=== PATIENT | male | born 1965 | race Caucasian/White ===

== ENCOUNTER 2017-01-28 04:14 | Emergency (ER) | payer OTHER ==
[~2017-01-28] VITALS: Ht 185.4 cm; Wt 81.8 kg
[~2017-01-28 04:14] MED LIST: BACTRIM,SEPT1 TABLET PO; HYDROCODON-ACE1 EAC7 PO; MOTRIN800 MG PO; PERCOCET 5/31 TABLET PO; TRAMADOL HCL50 MG PO
[2017-01-28 07:58] LABS: BASOPHIL COUNT 0.1 K/uL (0-0.1); EOSINOPHIL (%) 2.8 % (0-5); EOSINOPHIL COUNT 0.2 K/uL (0-0.3); HEMATOCRIT 41.8 % (38.0-50.0); IMMATURE GRANULOCYTE (%) 0.3 % (0.0-0.7); INSTRUMENT ABS NEUTROPHIL CT 3.8 K/uL; LYMPHOCYTE COUNT 1.9 K/uL (1.0-2.8); MCV 88.4 FL (86-99); MEAN PLAT.VOLUME 10.9 uM^3 (9.0-12.4); MONOCYTE (%) 11.5 % (3-12); MONOCYTE COUNT 0.8 K/uL (0-0.8); NEUTROPHIL (%) 56.6 % (45-76); NEUTROPHIL COUNT 3.8 K/uL (1.8-6.4); PLATELET COUNT 138 K/uL (156-360); RBC DIS.WIDTH-CV 13.4 % (11.8-14.6); RBC DIS.WIDTH-SD 43.9 % (39-53); RED BLOOD COUNT 4.73 M/uL (4.00-5.50); WHITE BLOOD COUNT 6.7 K/uL (4.1-10.2)
[2017-01-28 08:12] LABS: CHLORIDE 107 mEq/L (99-109); POTASSIUM 3.6 mEq/L (3.7-5.4); SODIUM 141 mEq/L (136-147)
[2017-01-28 08:13] LABS: PROTHROMBIN TIME 10.6 (9.2-11.2); PTT 28.2 (25-32)
[2017-01-28 08:14] LABS: GLUCOSE 90 mg/dL (70-99)
[2017-01-28 08:15] LABS: ANION GAP 12 MEQ/L (2-14)
[2017-01-28 08:18] LABS: GFR ESTIMATE (CALCULATED) > 59 mL/min/
[2017-01-28 08:19] LABS: UREA NITROGEN (BUN) 9 mg/dL (9-23)
[2017-01-28 09:32] VITALS: BP 120/86
== END 2017-01-28 09:32 | disposition short-term general hospital (02) ==
LOC: EME → EDBD 04:14 → TRA 04:14 → EME 09:32
PROVIDERS: Emergency Medicine
DX: S02.32XA Fracture of orbital floor, left side, initial encounter for closed fracture (principal); S09.90XA Unspecified injury of head, initial encounter; S01.01XA Laceration without foreign body of scalp, initial encounter; S02.40FA Zygomatic fracture, left side, initial encounter for closed fracture; Y04.8XXA Assault by other bodily force, initial encounter; Y07.9 Unspecified perpetrator of maltreatment and neglect; Z23 Encounter for immunization; F17.200 Nicotine dependence, unspecified, uncomplicated
CPT/HCPCS: 70450; 70486; 72125; 80048; 85025; 85610; 85730; 86900; 86901; 99281; 99285; J0690; J7030

== ENCOUNTER 2017-02-03 18:37 | Emergency (ER) | payer OTHER ==
[~2017-02-03] VITALS: Ht 182.9 cm; Wt 82.3 kg
[2017-02-03 18:45] VITALS: BP 158/100
[2017-02-03] MEDS ORDERED: DULOXETINE HCL60 MG PO (18:48)
[2017-02-03] MEDS ORDERED: LAMOTRIGINE100 MG PO (18:48)
[2017-02-03] MEDS ORDERED: AMITRIPTYLINE H25 MG PO (19:13)
[2017-02-03] MEDS ORDERED: BUSPIRONE HCL7.5 MG PO (19:14)
[2017-02-03] MEDS ORDERED: ESCITALOPRAM OX20 MG PO (19:15)
[2017-02-03] MEDS ORDERED: TRAZODONE HCL50 MG PO (19:15)
[2017-02-03] MEDS ORDERED: BRINTELLIX20 MG PO (19:15)
[2017-02-03] MEDS ORDERED: HYTRIN5 MG PO (19:16)
[2017-02-03] MEDS ORDERED: AMOXICILLIN500 MG PO (23:59)
[2017-02-03] MEDS ORDERED: PERCOCET 5/31 TABLET PO (23:59)
== END 2017-02-04 00:38 | disposition home or self-care (01) ==
LOC: EME 18:37
PROC: 3E0T3BZ Introduction of Anesthetic Agent into Peripheral Nerves and Plexi, Percutaneous Approach (ICD-10-PCS; principal; 2017-02-03)
DX: K04.7 Periapical abscess without sinus (principal); S01.01XD Laceration without foreign body of scalp, subsequent encounter; S02.92XD Unspecified fracture of facial bones, subsequent encounter for fracture with routine healing; Y08.09XD Assault by strike by other specified type of sport equipment, subsequent encounter; H11.32 Conjunctival hemorrhage, left eye; K02.9 Dental caries, unspecified; F17.200 Nicotine dependence, unspecified, uncomplicated
CPT/HCPCS: 70450; 70486; 99281; 99285

== ENCOUNTER 2017-02-19 16:09 | Emergency (ER) | payer OTHER ==
[~2017-02-19] VITALS: Ht 182.9 cm; Wt 80.0 kg
[~2017-02-19 16:09] MED LIST changes: +AMITRIPTYLINE H25 MG PO; +AMOXICILLIN500 MG PO; +BRINTELLIX20 MG PO; +BUSPIRONE HCL7.5 MG PO; +DULOXETINE HCL60 MG PO; +ESCITALOPRAM OX20 MG PO; +HYTRIN5 MG PO; +LAMOTRIGINE100 MG PO; +TRAZODONE HCL50 MG PO
[2017-02-19 18:22] LABS: HEMATOCRIT 43.7 % (38.0-50.0); MCH 29.7 PG (29.0-34.0); MCHC 34.1 G/DL (30.0-36.0); MCV 87.2 FL (86-99); MEAN PLAT.VOLUME 10.7 uM^3 (9.0-12.4); PLATELET COUNT 169 K/uL (156-360); RBC DIS.WIDTH-CV 12.9 % (11.8-14.6); RED BLOOD COUNT 5.01 M/uL (4.00-5.50)
[2017-02-19 18:31] LABS: CHLORIDE 96 mEq/L (99-109); POTASSIUM 3.7 mEq/L (3.7-5.4); SODIUM 133 mEq/L (136-147)
[2017-02-19 18:32] LABS: GLUCOSE 103 mg/dL (70-99)
[2017-02-19 18:34] LABS: ANION GAP 10 MEQ/L (2-14)
[2017-02-19 18:35] LABS: SERUM ETHYL ALCOHOL < 10 mg/dL
[2017-02-19 18:36] LABS: GFR ESTIMATE (CALCULATED) > 59 mL/min/
[2017-02-19 18:37] LABS: UREA NITROGEN (BUN) 9 mg/dL (9-23)
[2017-02-19] MEDS ORDERED: LIBRIUM25 MG PO (20:10)
[2017-02-19] MEDS ORDERED: ZOFRAN4 MG PO (20:10)
[2017-02-19 20:15] VITALS: BP 158/95
== END 2017-02-19 20:16 | disposition left against medical advice (07) ==
LOC: EME 16:09
DX: F10.20 Alcohol dependence, uncomplicated (principal); R56.9 Unspecified convulsions; R51 Headache; R68.83 Chills (without fever); F17.200 Nicotine dependence, unspecified, uncomplicated
CPT/HCPCS: 80048; 85027; 99281; 99284; G0480; J2765

== ENCOUNTER 2017-02-26 16:13 | Emergency (ER) | payer OTHER ==
[~2017-02-26] VITALS: Ht 182.9 cm; Wt 75.1 kg
[~2017-02-26 16:13] MED LIST changes: +LIBRIUM25 MG PO; +ZOFRAN4 MG PO
[2017-02-26 18:12] VITALS: BP 127/84
== END 2017-02-26 18:15 | disposition home or self-care (01) ==
LOC: EME 16:13
PROC: 0HQ0XZZ Repair Scalp Skin, External Approach (ICD-10-PCS; principal; 2017-02-26)
DX: S01.01XA Laceration without foreign body of scalp, initial encounter (principal); S50.311A Abrasion of right elbow, initial encounter; Y04.2XXA Assault by strike against or bumped into by another person, initial encounter; B19.20 Unspecified viral hepatitis C without hepatic coma; R56.9 Unspecified convulsions; F17.200 Nicotine dependence, unspecified, uncomplicated
CPT/HCPCS: 70450; 73080; 99281; 99283

== ENCOUNTER 2017-04-14 16:42 | Emergency (ER) | payer OTHER ==
[~2017-04-14] VITALS: Ht 182.9 cm; Wt 84.4 kg
[2017-04-14] MEDS ORDERED: BACTRIM,SEPT1 TABLET PO (18:36)
[2017-04-14] MEDS ORDERED: KEFLEX500 MG PO (18:36)
[2017-04-14 18:54] VITALS: BP 127/81
== END 2017-04-14 18:52 | disposition home or self-care (01) ==
LOC: EME 16:42
DX: L03.116 Cellulitis of left lower limb (principal)
CPT/HCPCS: 99281; 99284; J0696

== ENCOUNTER 2017-06-11 21:45 | Inpatient (IN) | payer OTHER ==
[~2017-06-11] VITALS: Ht 182.9 cm; Wt 82.6 kg
[~2017-06-11 21:45] MED LIST changes: +KEFLEX500 MG PO
[2017-06-11 23:09] LABS: HEMATOCRIT 44.9 % (38.0-50.0); MCHC 33.6 G/DL (30.0-36.0); MCV 86.2 FL (86-99); MEAN PLAT.VOLUME 10.2 uM^3 (9.0-12.4); PLATELET COUNT 209 K/uL (156-360); RBC DIS.WIDTH-SD 47.7 % (39-53); RED BLOOD COUNT 5.21 M/uL (4.00-5.50); WHITE BLOOD COUNT 8.4 K/uL (4.1-10.2)
[2017-06-11 23:18] LABS: CHLORIDE 102 mEq/L (99-109); POTASSIUM 3.8 mEq/L (3.7-5.4); SODIUM 143 mEq/L (136-147)
[2017-06-11 23:20] LABS: GLUCOSE 99 mg/dL (70-99)
[2017-06-11 23:22] LABS: ANION GAP 17 MEQ/L (2-14)
[2017-06-11 23:23] LABS: SERUM ETHYL ALCOHOL 282 mg/dL
[2017-06-11 23:24] LABS: GFR ESTIMATE (CALCULATED) > 59 mL/min/
[2017-06-11 23:25] LABS: UREA NITROGEN (BUN) 13 mg/dL (9-23)
[2017-06-11 23:48] LABS: AMPHETAMINE NEGATIVE (500 ng/mL); BARBITURATES NEGATIVE (200 ng/mL); BENZODIAZEPINES NEGATIVE (150 ng/mL); COCAINE PRESUMPTIVE POSITIVE (150 ng/mL); INTERNAL CONTROLS VALID? YES; METHADONE NEGATIVE (200 ng/mL); METHAMPHETAMINE NEGATIVE (500 ng/mL); OPIATES (MORPHINE) NEGATIVE (100 ng/mL); OXYCODONE NEGATIVE (100 ng/mL); PHENCYCLIDINE NEGATIVE (25 ng/mL); PROPOXYPHENE NEGATIVE (300 ng/mL); THC CANNABINOIDS PRESUMPTIVE POSITIVE (50 ng/mL); TRICYCLIC ANTIDEPRESSANTS NEGATIVE (300 ng/mL)
[2017-06-11 23:49] LABS: ADD MEDTOX COMMENT Y
[2017-06-12 09:29] VITALS: BP 124/81
[2017-06-12 15:14] VITALS: BP 144/84
[2017-06-13 08:40] VITALS: BP 145/75
[2017-06-13 15:55] VITALS: BP 137/79
[2017-06-14 07:54] VITALS: BP 120/72
[2017-06-14 15:33] VITALS: BP 140/85
[2017-06-15 08:17] VITALS: BP 147/83
[2017-06-15] MEDS ORDERED: FOLIC ACID1 MG PO (09:23)
[2017-06-15] MEDS ORDERED: Thiamine,Vitamin B1 PO (09:23)
[2017-06-15] MEDS ORDERED: BUSPAR10 MG PO (09:23)
[2017-06-15] MEDS ORDERED: DULOXETINE HCL60 MG PO (09:23)
== END 2017-06-15 11:06 | disposition other institution (70) | DRG 897 ==
LOC: EME 21:45 → 1WEST 06-12 07:25 → EDOF 06-12 07:25 → ENRESERV 06-12 09:16 → 1WEST 06-12 09:16
PROVIDERS: Emergency Medicine
PROC: HZ2ZZZZ Detoxification Services for Substance Abuse Treatment (ICD-10-PCS; principal; 2017-06-12)
DX: F10.239 Alcohol dependence with withdrawal, unspecified (principal); F90.9 Attention-deficit hyperactivity disorder, unspecified type; F14.20 Cocaine dependence, uncomplicated; R45.851 Suicidal ideations; F41.9 Anxiety disorder, unspecified; F17.210 Nicotine dependence, cigarettes, uncomplicated; F33.2 Major depressive disorder, recurrent severe without psychotic features; F10.229 Alcohol dependence with intoxication, unspecified; Y90.8 Blood alcohol level of 240 mg/100 ml or more; F12.20 Cannabis dependence, uncomplicated; G47.00 Insomnia, unspecified; Z59.0 Homelessness; Z56.0 Unemployment, unspecified; Z87.820 Personal history of traumatic brain injury; Z91.14 Patient's other noncompliance with medication regimen; Z91.19 Patient's noncompliance with other medical treatment and regimen; Z81.1 Family history of alcohol abuse and dependence
CPT/HCPCS: 71020; 73080; 80048; 84999; 85027; 90837; 97150 GO; 97165 GO; 99281; 99284; G0480

== ENCOUNTER 2017-08-04 13:11 | Emergency (ER) | payer OTHER ==
[~2017-08-04] VITALS: Ht 182.9 cm; Wt 85.4 kg
[~2017-08-04 13:11] MED LIST changes: +BUSPAR10 MG PO; +FOLIC ACID1 MG PO; +Thiamine,Vitamin B1 PO
[2017-08-04 15:45] VITALS: BP 118/78
== END 2017-08-04 15:46 | disposition home or self-care (01) ==
LOC: EME 13:11
DX: M54.5 Low back pain (principal); S50.11XA Contusion of right forearm, initial encounter; B19.20 Unspecified viral hepatitis C without hepatic coma; F90.9 Attention-deficit hyperactivity disorder, unspecified type; F31.9 Bipolar disorder, unspecified; R56.9 Unspecified convulsions; F32.9 Major depressive disorder, single episode, unspecified; F41.9 Anxiety disorder, unspecified; F17.200 Nicotine dependence, unspecified, uncomplicated
CPT/HCPCS: 99281; 99283

== ENCOUNTER 2017-08-06 20:54 | Emergency (ER) | payer OTHER ==
[~2017-08-06] VITALS: Ht 182.9 cm; Wt 85.4 kg
[2017-08-06 21:31] LABS: HEMATOCRIT 45.5 % (38.0-50.0); MCH 30.1 PG (29.0-34.0); MCHC 34.1 G/DL (30.0-36.0); MCV 88.3 FL (86-99); MEAN PLAT.VOLUME 10.6 uM^3 (9.0-12.4); PLATELET COUNT 201 K/uL (156-360); RBC DIS.WIDTH-CV 12.6 % (11.8-14.6); RBC DIS.WIDTH-SD 41.1 % (39-53); RED BLOOD COUNT 5.15 M/uL (4.00-5.50); WHITE BLOOD COUNT 5.8 K/uL (4.1-10.2)
[2017-08-06 21:46] LABS: CHLORIDE 103 mEq/L (99-109); POTASSIUM 3.6 mEq/L (3.7-5.4); SODIUM 140 mEq/L (136-147)
[2017-08-06 21:48] LABS: GLUCOSE 83 mg/dL (70-99)
[2017-08-06 21:49] LABS: ANION GAP 9 MEQ/L (2-14)
[2017-08-06 21:51] LABS: SERUM ETHYL ALCOHOL 190 mg/dL
[2017-08-06 21:52] LABS: GFR ESTIMATE (CALCULATED) > 59 mL/min/
[2017-08-06 21:53] LABS: UREA NITROGEN (BUN) 9 mg/dL (9-23)
[2017-08-06 21:56] LABS: ADD MEDTOX COMMENT Y; AMPHETAMINE NEGATIVE (500 ng/mL); BARBITURATES NEGATIVE (200 ng/mL); BENZODIAZEPINES NEGATIVE (150 ng/mL); COCAINE PRESUMPTIVE POSITIVE (150 ng/mL); INTERNAL CONTROLS VALID? YES; METHADONE NEGATIVE (200 ng/mL); METHAMPHETAMINE NEGATIVE (500 ng/mL); OPIATES (MORPHINE) PRESUMPTIVE POSITIVE (100 ng/mL); OXYCODONE NEGATIVE (100 ng/mL); PHENCYCLIDINE NEGATIVE (25 ng/mL); PROPOXYPHENE NEGATIVE (300 ng/mL); THC CANNABINOIDS NEGATIVE (50 ng/mL); TRICYCLIC ANTIDEPRESSANTS PRESUMPTIVE POSITIVE (300 ng/mL)
[2017-08-06 22:26] LABS: OPIATES QUANTITATIVE VALUE 0 NG/ML
[2017-08-07 04:40] VITALS: BP 113/74
== END 2017-08-07 06:08 | disposition home or self-care (01) ==
LOC: EME 20:54
DX: F10.10 Alcohol abuse, uncomplicated (principal); F43.20 Adjustment disorder, unspecified; Y90.6 Blood alcohol level of 120-199 mg/100 ml; R56.9 Unspecified convulsions; B19.20 Unspecified viral hepatitis C without hepatic coma; F31.9 Bipolar disorder, unspecified; F43.10 Post-traumatic stress disorder, unspecified; F90.9 Attention-deficit hyperactivity disorder, unspecified type; F17.200 Nicotine dependence, unspecified, uncomplicated
CPT/HCPCS: 80048; 84999; 85027; 99281; 99285; G0480

== ENCOUNTER 2017-08-08 19:33 | Emergency (ER) | payer OTHER ==
[~2017-08-08] VITALS: Ht 182.9 cm; Wt 82.9 kg
[2017-08-08 19:55] VITALS: BP 120/86
== END 2017-08-08 22:14 | disposition left against medical advice (07) ==
LOC: EME 19:33
DX: F10.129 Alcohol abuse with intoxication, unspecified (principal); Z53.21 Procedure and treatment not carried out due to patient leaving prior to being seen by health care provider

== ENCOUNTER 2018-05-03 21:13 | Emergency (ER) | payer OTHER ==
[~2018-05-03] VITALS: Ht 182.9 cm; Wt 74.6 kg
[2018-05-04] MEDS ORDERED: NORCO 5/3251 TABLET PO (00:52)
[2018-05-04] MEDS ORDERED: AUGMENTIN875 MG PO (00:52)
[2018-05-04 01:59] VITALS: BP 131/79
[2018-05-05] MEDS ORDERED: ROXICODONE5 MG PO (11:33)
== END 2018-05-04 02:10 | disposition home or self-care (01) ==
LOC: EME 21:13
DX: S02.642A Fracture of ramus of left mandible, initial encounter for closed fracture (principal); S02.651A Fracture of angle of right mandible, initial encounter for closed fracture; Y04.8XXA Assault by other bodily force, initial encounter; F10.129 Alcohol abuse with intoxication, unspecified; Y90.9 Presence of alcohol in blood, level not specified; R56.9 Unspecified convulsions; B19.20 Unspecified viral hepatitis C without hepatic coma; F32.9 Major depressive disorder, single episode, unspecified; F41.9 Anxiety disorder, unspecified; F31.9 Bipolar disorder, unspecified; F43.10 Post-traumatic stress disorder, unspecified; F90.9 Attention-deficit hyperactivity disorder, unspecified type; F17.200 Nicotine dependence, unspecified, uncomplicated; Z87.19 Personal history of other diseases of the digestive system
CPT/HCPCS: 70450; 70486; 72125; 99281; 99284; J2270

== ENCOUNTER 2018-05-05 10:17 | Emergency (ER) | payer OTHER ==
[~2018-05-05] VITALS: Ht 182.9 cm; Wt 74.5 kg
[~2018-05-05 10:17] MED LIST changes: +AUGMENTIN875 MG PO; +NORCO 5/3251 TABLET PO
[2018-05-05] MEDS ORDERED: ROXICODONE5 MG PO (11:33)
[2018-05-05 12:36] VITALS: BP 143/91
== END 2018-05-05 12:37 | disposition home or self-care (01) ==
LOC: EME 10:17
DX: S02.609A Fracture of mandible, unspecified, initial encounter for closed fracture (principal); Y04.2XXA Assault by strike against or bumped into by another person, initial encounter; R56.9 Unspecified convulsions; B19.20 Unspecified viral hepatitis C without hepatic coma; F90.9 Attention-deficit hyperactivity disorder, unspecified type; F43.10 Post-traumatic stress disorder, unspecified; F17.200 Nicotine dependence, unspecified, uncomplicated; Z87.19 Personal history of other diseases of the digestive system; Z59.0 Homelessness
CPT/HCPCS: 99281; 99284; J2270